=== PATIENT | female | born 1945 | race Caucasian/White ===

== ENCOUNTER → 2016-05-21 | Outpatient (CLI) | payer BC ==
[~2016-05-21] MED LIST: CALC500C3 PEG; CLCC1250 PO; ENBREL; FSM70 PO; IBUP-1050 PO
--- NOTE | 2016-05-21 13:25 | MAMMOGRAPHY REPORT ---
BILATERAL DIGITAL SCREENING MAMMOGRAM WITH CAD: 05/21/2016 CLINICAL HISTORY: Routine screening. Patient has no complaints. TECHNIQUE: Current study was also evaluated with a Computer Aided Detection (CAD) system. Bilatera l CC and MLO views were obtained. COMPARISON: Comparison is made to exams dated: 05/21/2015 mammogram, 05/18/2014 mammogram, 04/10/2013 m ammogram, 04/08/2012 mammogram, 04/03/2011 mammogram, and 04/02/2010 mammogram - [facility]. BREAST COMPOSITION: There are scattered areas of fibroglandular density in both breasts. FINDINGS: No suspicious masses, calcifications, or areas of architectural distortion are noted in e ither breast. There has been no significant interval change compared to prior exams. IMPRESSION: ACR BI-RADS CATEGORY 1: NEGATIVE There is no mammographic evidence of malignancy. A 1 year screening mammogram is recommended. The p atient will receive written notification of the results. Approximately 10% of breast cancers are not detected with mammography. A negative mammographic repor t should not delay biopsy if a clinically suggestive mass is present. Lila Gloria M.D. /:05/21/2016 12:32:18 Custodial Aide: Rekha STYLES,R, M, [facility] letter sent: Normal 1/2 BI-RADS Code: ACR BI-RADS Category 1: Negative
== END | disposition home or self-care (01) ==
LOC: C.MAMM 10:39
PROVIDERS: ATTEND Internal Medicine
DX: Z12.31 Encounter for screening mammogram for malignant neoplasm of breast (principal)

== ENCOUNTER → 2016-06-10 | Outpatient (CLI) | payer BC ==
[2016-06-10 16:41] LABS: BASO % 0.3 %; BASO ABS # 0.03 K/uL (0-0.2); COMPLETE YES; EOS % 1.2 %; HEMATOCRIT 42.5 % (37-47); IG% 0.3 %; LYMPH % 28.4 %; LYMPH ABS # 2.84 K/uL (1.2-3.4); MEAN CELL VOLUME 88.2 fL (80-100); MEAN CORPUSCULAR HEMOGLOBIN 30.3 pg (25-34); MEAN CORPUSCULAR HGB CONC 34.4 g/dl (32-36); MEAN PLATELET VOLUME 9.2 fL (7.4-10.4); MONO % 5.2 %; NEUT % 64.6 %; PLATELET COUNT 361 K/uL (130-400); RED BLOOD COUNT 4.82 M/uL (4.2-5.4)
[2016-06-10 17:01] LABS: ALT/SGPT 35 U/L (12-78); BLOOD UREA NITROGEN 15 mg/dl (7-18); BUN/CREATININE RATIO 13.5 (10-20); CALCIUM 9.3 mg/dl (8.5-10.1); CARBON DIOXIDE 26 mmol/L (21-32); CHLORIDE 104 mmol/L (98-107); GLUCOSE 163 mg/dl (70-99); POTASSIUM 3.7 mmol/L (3.5-5.1); SODIUM 140 mmol/L (136-145)
[2016-06-10 17:04] LABS: ALB/GLOB RATIO 0.9 (0.9-2); ALKALINE PHOSPHATASE 41 U/L (45-117); AST/SGOT 31 U/L (15-37)
== END | disposition home or self-care (01) ==
LOC: C.LAB1850 15:12
PROVIDERS: ATTEND Internal Medicine
DX: L40.50 Arthropathic psoriasis, unspecified (principal); Z79.899 Other long term (current) drug therapy

== ENCOUNTER → 2016-12-11 | Outpatient (CLI) | payer BC ==
[2016-12-11 14:15] LABS: HEMATOCRIT 43.4 % (37-47); MEAN CELL VOLUME 89.9 fL (80-100); MEAN CORPUSCULAR HEMOGLOBIN 31.3 pg (25-34); MEAN CORPUSCULAR HGB CONC 34.8 g/dl (32-36); MEAN PLATELET VOLUME 9.6 fL (7.4-10.4); PLATELET COUNT 358 K/uL (130-400); RED BLOOD COUNT 4.83 M/uL (4.2-5.4); WHITE BLOOD COUNT 10.66 K/uL (4.8-10.8)
[2016-12-11 14:25] LABS: ALT/SGPT 35 U/L (12-78); AST/SGOT 26 U/L (15-37); BLOOD UREA NITROGEN 13 mg/dl (7-18); CALCIUM 9.4 mg/dl (8.5-10.1); CARBON DIOXIDE 27 mmol/L (21-32); CHLORIDE 105 mmol/L (98-107); CHOLESTEROL 198 mg/dl (0-200); CREATININE 0.99 mg/dl (0.60-1.20); GLUCOSE 88 mg/dl (70-99); POTASSIUM 4.3 mmol/L (3.5-5.1); SODIUM 138 mmol/L (136-145)
[2016-12-11 14:28] LABS: CHOLESTEROL/HDL RATIO 2.8; HDL CHOLESTEROL 70 mg/dl; LDL CHOLESTEROL CALCULATED 104 mg/dl; TRIGLYCERIDES 120 mg/dl (0-150); VERY LOW DENSITY LIPOPROT CALC 24 mg/dl
== END | disposition home or self-care (01) ==
LOC: C.LAB1850 12:39
PROVIDERS: ATTEND Internal Medicine
DX: L40.50 Arthropathic psoriasis, unspecified (principal); M85.80 Other specified disorders of bone density and structure, unspecified site; Z79.899 Other long term (current) drug therapy; Z13.220 Encounter for screening for lipoid disorders

== ENCOUNTER → 2017-05-24 | Outpatient (CLI) | payer BC ==
--- NOTE | 2017-05-25 15:16 | MAMMOGRAPHY REPORT ---
BILATERAL DIGITAL SCREENING MAMMOGRAM TOMOSYNTHESIS WITH CAD: 05/24/2017 CLINICAL HISTORY: Routine screening. Patient has no complaints. TECHNIQUE: Breast tomosynthesis in addition to standard 2D mammography was performed. Current study was also evaluated with a Computer Aided Detection (CAD) system. COMPARISON: Comparison is made to exams dated: 05/21/2015 mammogram, 05/18/2014 mammogram, 04/10/2013 ma mmogram, 04/08/2012 mammogram, 04/03/2011 mammogram, and 04/02/2010 mammogram - [facility]ter. BREAST COMPOSITION: There are scattered areas of fibroglandular density in both breasts. FINDINGS: The parenchymal pattern is unchanged. No developing mass, architectural distortion or clus ter of suspicious microcalcifications is seen in either breast. IMPRESSION: ACR BI-RADS CATEGORY 2: BENIGN There is no mammographic evidence of malignancy. A 1 year screening mammogram is recommended. The pa tient will receive written notification of the results. Approximately 10% of breast cancers are not detected with mammography. A negative mammographic report should not delay biopsy if a clinically suggestive mass is present. Bhavana Mars M.D. ay/:05/24/2017 15:42:15 Bible Reader: Angelica STYLES(Tin)(Rosa)(BD), [facility] letter sent: Normal 1/2 BI-RADS Code: ACR BI-RADS Category 2: Benign
== END | disposition home or self-care (01) ==
LOC: C.MAMM 10:20
PROVIDERS: ATTEND Internal Medicine
DX: Z12.31 Encounter for screening mammogram for malignant neoplasm of breast (principal)

== ENCOUNTER → 2017-06-14 | Outpatient (CLI) | payer BC ==
[2017-06-14 13:18] LABS: HEMATOCRIT 42.6 % (37-47); HEMOGLOBIN 14.6 g/dL (12.0-16.0); MEAN CELL VOLUME 90.1 fL (80-100); MEAN CORPUSCULAR HEMOGLOBIN 30.9 pg (25-34); MEAN CORPUSCULAR HGB CONC 34.3 g/dl (32-36); MEAN PLATELET VOLUME 8.7 fL (7.4-10.4); PLATELET COUNT 351 K/uL (130-400); RED CELL DISTRIBUTION WIDTH CV 13.4 % (11.5-14.5); RED CELL DISTRIBUTION WIDTH SD 44.8 fL (36.4-46.3); WHITE BLOOD COUNT 10.48 K/uL (4.8-10.8)
[2017-06-14 13:52] LABS: ALBUMIN 3.7 gm/dl (3.4-5.0); ALT/SGPT 44 U/L (12-78); AST/SGOT 36 U/L (15-37); BLOOD UREA NITROGEN 13 mg/dl (7-18); CALCIUM 9.1 mg/dl (8.5-10.1); CARBON DIOXIDE 27 mmol/L (21-32); CREATININE 0.95 mg/dl (0.60-1.20); GLUCOSE 85 mg/dl (70-99); POTASSIUM 3.8 mmol/L (3.5-5.1); SODIUM 139 mmol/L (136-145)
[2017-06-14 13:57] LABS: ALKALINE PHOSPHATASE 45 U/L (45-117); TOTAL PROTEIN 7.5 gm/dl (6.4-8.2)
== END | disposition home or self-care (01) ==
LOC: C.LAB1850 12:40
PROVIDERS: ATTEND Internal Medicine
DX: M85.80 Other specified disorders of bone density and structure, unspecified site (principal); L40.50 Arthropathic psoriasis, unspecified

== ENCOUNTER 2024-04-21 10:50 | Inpatient (IN) ==
[2024-04-21 11:51] LABS: Basophils # (auto) 0.04 K/uL (0.00-0.20); Basophils % (auto) 0.3 %; Eosinophils # (auto) 0.01 K/uL (0.00-0.50); Eosinophils % (auto) 0.1 %; Hematocrit (blood only) 48.1 % (37.0-47.0); Hemoglobin 16.2 g/dl (12.0-16.0); Immature Granulocytes # (auto) 0.07 K/uL (0.01-0.20); Immature Granulocytes % (auto) 0.4 %; Lymphocytes # (auto) 1.71 K/uL (1.20-3.40); Lymphocytes % (auto) 10.8 %; Mean Corpuscular Hgb Conc 33.7 g/dL (32.0-36.0); Mean Corpuscular Volume 89.1 fL (80.0-100.0); Mean Platelet Volume 8.6 fL (9.4-12.4); Monocytes # (auto) 1.17 K/uL (0.11-0.59); Monocytes % (auto) 7.4 %; Neutrophils # (auto) 12.85 K/uL (1.40-6.50); Platelet Count 452 K/uL (130-400); RDW Coefficient of Variation 12.7 % (11.5-14.5); RDW Standard Deviation 41.7 fL (36.4-46.3); White Blood Count 15.85 K/ul (4.8-10.8)
[2024-04-21 11:56] LABS: Appearance Urine Clear (Clear); Bacteria Urine Automated None Seen (None Seen); Bilirubin Urine 1+ (Negative); Blood Urine 1+ (Negative); Cast Urine Automated >20 /lpf (0-2); Color Urine Dark Yellow; Glucose Urine UA Negative (Negative); Ketones Urine Trace (Negative); Leukocyte Esterase Urine Negative (Negative); Mucus Urine Present (None Prsent); Nitrite Urine Negative (Negative); Protein Urine 1+ (Negative); Specific Gravity Urine 1.026 (1.000-1.030); Urobilinogen Urine Negative (Negative); WBC Urine Automated 0-5 /hpf (0-5)
[2024-04-21 12:08] LABS: Alanine Aminotransferase 14 U/L (7-52); Albumin Globulin Ratio 1.3 (0.9-2); Albumin Level 4.5 gm/dl (3.4-5.0); Alkaline Phosphatase 46 U/L (34-104); Anion Gap 13 (3-11); Aspartate Aminotransferase 23 U/L (13-39); BUN Creatinine Ratio 21.3 (10-20); Blood Urea Nitrogen 20 mg/dl (6-23); Calcium 9.8 mg/dl (8.6-10.3); Carbon Dioxide 26 mmol/L (21-32); Chloride 98 mmol/L (98-107); Creatinine Clr Calc Pharmacy 31.7 ml/min; Globulin 3.5 gm/dl (2.5-4.0); Glucose 123 mg/dl (70-99(Fasting)); Lipase 8 U/L (11-82); Potassium 3.9 mmol/L (3.5-5.1); Sodium 137 mmol/L (136-145)
[2024-04-21] MEDS: OPTIRAY 320 100ml IV ONE (12:30)
[2024-04-21 12:36] LABS: Adenovirus PCR Not Detected (NotDetected); Bordetella parapertussis PCR Not Detected (NotDetected); Bordetella pertussis PCR Not Detected (NotDetected); Chlamydia pneumoniae PCR Not Detected (NotDetected); Coronavirus 229E PCR Not Detected (NotDetected); Coronavirus CoV-2 (COVID19)PCR Not Detected (NotDetected); Coronavirus HKU1 PCR Not Detected (NotDetected); Coronavirus NL63 PCR Not Detected (NotDetected); Coronavirus OC43PCR Not Detected (NotDetected); Human Metapneumovirus PCR Not Detected (NotDetected); Influenza A PCR Not Detected (NotDetected); Influenza B PCR Not Detected (NotDetected); Mycoplasma pneumoniae PCR Not Detected (NotDetected); Parainfluenza Virus 1 PCR Not Detected (NotDetected); Parainfluenza Virus 2 PCR Not Detected (NotDetected); Parainfluenza Virus 3 PCR Not Detected (NotDetected); Parainfluenza Virus 4 PCR Not Detected (NotDetected); Respiratory Syncytial VirusPCR Not Detected (NotDetected); Rhinovirus/Enterovirus PCR Not Detected (NotDetected)
--- NOTE | 2024-04-21 12:53 | CT Scan Report ---
ABDOMEN AND PELVIS CT WITH IV CONTRAST CT DOSE: 394.91 mGy.cm HISTORY: lower abdominal pain, vomiting, diarrhea TECHNIQUE: Multiaxial CT images of the abdomen and pelvis were performed following the IV administrat ion of 90 cc of Optiray, A dose lowering technique was utilized adhering to the principles of ALARA. COMPARISON STUDY: 08/15/2013 FINDINGS: ABDOMEN: Liver, gallbladder, spleen, pancreas, and adrenal glands are unremarkable. Kidneys show no h ydronephrosis. There are scattered atherosclerotic calcifications. No abdominal aortic aneurysm. Pelvis: Uterus is either very diminutive or absent. No adnexal mass seen. Urinary bladder is decompre ssed. There is mild sigmoid diverticulosis. No acute diverticulitis. There is right hemicolectomy wit h anastomosis. There are multiple dilated small bowel loops at the proximal jejunum with transition z one at the right lower quadrant distal jejunum anteriorly best seen on coronal series 300 images 34 t hrough 54. Findings are consistent with small bowel obstruction, possibly due to adhesion. The small bowel beyond that point is decompressed. The colon is decompressed. No significant retained stool. Th ere is trace low pelvic free fluid. No free air or abscess. No enlarged adenopathy. Osseous structures: There are mild degenerative changes at the lumbar spine and hips. IMPRESSION: Small bowel obstruction with focal transition point at the anterior right lower quadrant distal jejunum, possibly due to adhesion. ACT 112: Negative or not required by law. The above report was generated using voice recognition software. It may contain grammatical, syntax o r spelling errors. Electronically signed by: Maco Davila M.D. 04/21/2024 12:51 PM
--- NOTE | 2024-04-21 13:37 | History & Physical Report ---
Date of Service April 21, 2024 Assessment & Plan (1) Small bowel obstruction: (2) Psoriatic arthritis: (3) Turners syndrome: Plan Anahi is a 79-year-old female with PMH of HTN, radiculitis, Browne syndrome, GERD, and psoriasis. She presented on 04/21 at the behest of her PCP for nausea, vomiting, diarrhea, and abdominal pain x 3 days. Her symptoms started on Tuesday 04/18 when she developed right lower quadrant abdominal pain during a bowel movement. Later that day, she began throwing up. She rates the pain 10/10 at worst, and 7/10 today in the emergency department. #Small bowel obstruction A/P CT revealed small bowel obstruction with focal transition point at the anterior RLQ H/o righthemicolectomy 28 years ago for tumor removal General surgery consult appreciated Patient is doing much better today; vomited this morning, but is still pass ing gas, and abdominal pain has improved Will defer NG tube at this time Strict n.p.o. for now IVF maintenance with NSS at 90 mL/hr x 24h (please add on additional fluids as needed) IV acetaminophen as needed for pain/fever IV antiemetics as needed for nausea/vomiting CRP ordered, pending for trend #Psoriatic arthritis Patient reports she normally gets her etanercept injections on Wednesday, but did not take it on Friday 04/21 Will defer for now Disposition: Admit to [facility] Full code N.p.o. VTE PPx: SCDs History of Present Illness Chief Complaint: Flulike symptoms Primary Care Provider: Jonathan Mahoney MD Anahi is a 79-year-old female with PMH of HTN, radiculitis, Browne syndrome, GERD, and psoriasis. She presented on 04/21 at the behest of her PCP for nausea, vomiting, diarrhea, and abdominal pain x 3 days. Her symptoms started on Tuesday 04/18 when she developed right lower quadrant abdominal pain during a bowel movement. Later in the day she began throwing up. She rates the pain 10/10 at worst, and 7/10 today in the emergency department. The only medication she is taken for her symptoms have been Tums, but this did not help as she vomited them up. She has not attempted to take any Tylenol or ibuprofen at home. Her pain is located in the right lower quadrant, with some radiation along the flank into the back. She reports the pain somewhat improved with sleep. She has barely been able to tolerate solids or liquids over the past 3 days. She drank some propel and diet Coke this morning, but then immediately threw it up. Her vomit was dark color this morning, but she was unsure if it was due to the Coca-Cola. No bright red blood in her vomit. She is still passing gas. Her last BM was 2 days ago. She only takes vitamins on a daily basis, and etanercept on Fridays for her psoriatic arthritis. She has no prior history of small bowel obstructions, but does have a history of right hemicolectomy to remove a tumor 28 years ago. Her appendix was removed at that time. Patient denies smoking, tobacco use, alcohol use, or recreational drug use. She has a dog named Shania (Marquita barnes). Patient is hypertensive 159/112 and tachycardic at time of admission; vitals otherwise stable. ED course: ROS: Patient endorses RLQ abdominal pain, N/V, lightheadedness (due to not eating), DIXON, and chronic dry cough. Patient denies fever, chills, night-sweats, chest pain, SOB, pleuritic CP, hematemesis, burning with urination, blood in the urine/stool, or melena. Allergies Allergy/AdvReac Type Severity Reaction Status Date / Time latex Allergy Intermediate SWELLS Verified 01/21/24 10:01 Penicillins Allergy Mild Verified 01/21/24 10:01 Home Medications Medication Instructions Recorded Confirmed Type etanercept 50 mg/mL (1 mL) 50 mg subcut WK 12/13/18 04/21/24 History subcutaneous syringe (Enbrel) calcium 500 mg (as 1 tab PO DIRECTED 07/17/19 04/21/24 History carbonate)-vitamin D3 5 mcg (200 unit) tablet cholecalciferol (vitamin D3) 25 1,000 units PO DAILY 07/17/19 04/21/24 History mcg (1,000 unit) capsule Eye Drops Relief 1 drp ophthalmic (eye) DIRECTED 04/21/24 04/21/24 History Past Med/Surg History Problem List (Updated 04/21/24 @ 14:51 by Rome Bruce PA-C) Small bowel obstruction Finger fracture, right Proximal phalanx fracture of finger (Acute ~12/01/23) mildly displaced fracture of the proximal phalanx of the right fifth digit Wears hearing aid in both ears Oticon Dynamo SP8 with FS silicone molds disp 01/2020 Headache Post-nasal drip Hyperglycemia Low vitamin B12 level Mixed conductive and sensorineural hearing loss of right ear with restricted hearing of left ear : [facility], AD: [facility] Cough Elevated white blood cell count Psoriasis Hx of mastoidectomy 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, 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 Dupuytren contracture GERD (gastroesophageal reflux disease) Osteopenia (Chronic) Turners syndrome (Chronic) Psoriatic arthritis Hypertension Surgical History S/P sinus surgery S/P colectomy Status post mastoidectomy S/P hernia repair History of dental surgery S/P cataract surgery Family History Mother Hypertension Osteoporosis Father Pancreatic cancer Other Breast cancer Colonic polyp Diabetes Ovarian cancer Social History Smoking Status: Never smoker Second Hand Exposure: No; Hx Alcohol Use: No Hx Substance Use: No Preferred Language: Citizen Of [place] Communication Ability: Effective Visual Impairment: No Limitations Hearing Ability: Use of Hearing Aid marital status: / Current Living Situation: Alone current occupational status: retired 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 [employer] Feels Safe at Home: Yes Childhood Exposure to Second-Hand Smoke: Yes Dental Care, Regularly: Yes Physical Activity Frequency: Daily Seatbelt Use: always Sunscreen Use: Yes Review of Systems Review of Systems: See HPI above Physical Exam Physical Exam: General: no acute distress; pleasant affect; friend at bedside; non-toxic appearing; frail appearing; SpO2 96% on RA HEENT: normocephalic, atraumatic; no scleral icterus; PERRLA; vision and hearing grossly intact Neck: supple; no lymphadenopathy; trachea midline Skin: warm, dry without signs of tenting; no cyanosis; no rashes, bruising, lesions, or erythema noted CV: chest wall NTP; RRR; S1/S2 normal; no murmurs/rubs/gallops; pulses intact and symmetric at radial, DP, and PT Lungs: no acute respiratory distress; symmetrical chest wall expansion; clear breath sounds across all lung concepcion w/o adventitious sounds; no wheezing ABD: Soft; RLQ is TTP; surgical scars noted; BS present; no rebound/guarding MSK: no tics or fasciculations; no edema noted in the LEs b/l, nonerythematous Neuro: A&Ox3; normal mood and affect; fluent speech; no focal deficits; s ensation intact and symmetric in lower extremities bilaterally Results & Data Results & Data Vital Signs (Past 12 Hours) Vital Signs Temp Pulse Resp BP Pulse Ox O2 Del Method 04/21/24 10:55 36.8 C 115 H 18 159/112 H 96 Room Air Laboratory Results Abnormal lab results 04/21/24 04/21/24 Range/Units 11:27 11:29 WBC 15.85 H (4.8-10.8) K/ul Hgb 16.2 H (12.0-16.0) g/dl Hct 48.1 H (37.0-47.0) % Plt Count 452 H (130-400) K/uL MPV 8.6 L (9.4-12.4) fL Neut # (Auto) 12.85 H (1.40-6.50) K/uL Mcdonald # (Auto) 1.17 H (0.11-0.59) K/uL Anion Gap 13 H (3-11) BUN/Creatinine Ratio 21.3 H (10-20) Glucose 123 H (70-99(Fasting)) mg/dl Lipase 8 L (11-82) U/L Urine Protein 1+ H (Negative) Urine Ketones Trace H (Negative) Urine Blood 1+ H (Negative) Urine Bilirubin 1+ H (Negative) Urine RBC (Auto) 6-10 H (0-2) /hpf U Hyaline Cast (Auto) >20 H (0-2) /lpf U Epithel Cells (Auto) 3-5 H (0-2) /hpf Urine Mucus Present A (None Prsent) Diagnostic Findings Abdomen/Pelvis CT 04/21/24 11:[address] WITH IV CONTRAST CT DOSE: 394.91 mGy.cm HISTORY: lower abdominal pain, vomiting, diarrhea TECHNIQUE: Multiaxial CT images of the abdomen and pelvis were performed following the IV administration of 90 cc of Optiray, A dose lowering technique was utilized adhering to the principles of ALARA. COMPARISON STUDY: 08/15/2013 FINDINGS: ABDOMEN: Liver, gallbladder, spleen, pancreas, and adrenal glands are unremarkable. Kidneys show no hydronephrosis. There are scattered atherosclerotic calcifications. No abdominal aortic aneurysm. Pelvis: Uterus is either very diminutive or absent. No adnexal mass seen. Urinary bladder is decompressed. There is mild sigmoid diverticulosis. No acute diverticulitis. There is right hemicolectomy with anastomosis. There are multiple dilated small bowel loops at the proximal jejunum with transition zone at the right lower quadrant distal jejunum anteriorly best seen on coronal series 300 images 34 through 54. Findings are consistent with small bowel obstruction, possibly due to adhesion. The small bowel beyond that point is decompressed. The colon is decompressed. No significant retained stool. There is trace low pelvic free fluid. No free air or abscess. No enlarged adenopathy. Osseous structures: There are mild degenerative changes at the lumbar spine and hips. IMPRESSION: Small bowel obstruction with focal transition point at the anterior right lower quadrant distal jejunum, possibly due to adhesion. ACT 112: Negative or not required by law. The above report was generated using voice recognition software. It may contain grammatical, syntax or spelling errors. Electronically signed by: Maco Davila M.D. 04/21/2024 12:51 PM Code Status & VTE Plan Code Status Full code Supervising Physician Co-Signing Physician Notes Patient seen and examined, chart reviewed, case discussed with Rome Bruce PA-C and I agree with the assessment and plan as above except as otherwise noted Labs and images reviewed 79-year-old female with past history of GERD, Turners, psoriatic arthritis, hypertension with several days of abdominal discomfort, nausea, vomiting for aseveral days and worse in the last 24 hours. +RLQ pain. Abdomen is soft and without rebound or rigidity. Prior hx of R hemicolectomy 28 years ago for concern of malignancy. CTA/P shows small bowel obstruction with transition point. General surgery consulted NPO. Patient is having swallowing flatus today. He is not nauseous and feels better on reassessment and is actually hungry. Do not recommend diet advancement quite yet, but will defer NGT. If worsening or return of nausea/vomiting NGT to LIS. IVFM continued. Contaminated UA without evidence of infection. BioFire is negative. Agree with assessment management above PG Care Time/CCT Total # of Minutes Spent Total Time Spent with Patient: Total time spent is greater than 50% in coordination of care (as documented) at patient's floor/unit and/or counseling patient: C[place] [address] INT INP/OBS CARE 2/55MIN Patient Type Established History Comprehensive Exam Comprehensive Medical Decision Making Moderate Complexity Diagnoses Small bowel obstruction K56.609 Psoriatic arthritis L40.50 Turners syndrome Q96.9
[2024-04-21] MEDS: SODIUM CHLORIDE 0.9% 1,000 ML IV SCH (15:11)
--- NOTE | 2024-04-21 15:40 | Surgery Consultation ---
Date of Consultation April 21, 2024 Assessment & Plan (1) Small bowel obstruction: This is a 79yF with a PMH of Browne Syndrome, hearing loss, GERD, HTN, Psoriatric arthritis who presents to the [facility] ED on 04/21/24 with complaints of abdominal pain, nausea/vomiting that all started on Wednesday. She has been de aling with intermittent symptoms since then. This AM had emesis again after drinking some diet coke and propel along with right sided abdominal discomfort prompting her to come in. She underwent a CT a/p that showed a small bowel obstruction with focal transition point at the anterior right lower quadrant distal jejunum, possibly due to adhesions. 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 She also subsequently had an incisional hernia repair as well. Patient denies ever having an SBO before. She says her last BM was a couple days ago and believes she is passing small amounts of gas today. She describes feeling a bit better than previously and is asking if she can eat. Today's vital signs are stable, initially tachycardic to 115 now 82. BP stable. Labs show WBC 15, Hbg 16, Cr 0.9. On exam patient is comfortable appearing and in no acute distress. Her abdomen is soft, mildly distended with discomfort to palpation in the R mid and R lower abdominal regions. Reviewed the plan of care with patient as she will be admitted for ongoing care. Keep patient NPO with IVF for bowel rest. Should she develop worsening nausea/vomiting/abdominal pain/distention she is aware that we may need to place an NGT for decompression. As she is feeling a bit better i believe we can hold off on this for now. We will follow along and hopefully she will improve with conservative measures, no plans for acute surgical intervention at this time. History of Present Illness History of Present Illness This is a 79yF with a PMH of Browne Syndrome, hearing loss, GERD, HTN, Psoriatric arthritis who presents to the [facility] ED on 04/21/24 with complaints of abdominal pain, nausea/vomiting. Patient reports starting to not feel well late wednesday evening. On she had some diarrhea in the AM and then vomiting later in the day. no emesis and then this AM had emesis again after drinking some diet coke and propel. She states she has some R sided abdominal pain associated with all of this. Because of her symptoms she presented to the ER for further evaluation. She underwent a CT a/p that showed a small bowel obstruction with focal transition point at the anterior right lower quadrant distal jejunum, possibly due to adhesions. Patient reports not having much of an appetite since all this started but did eat some bites of oatmeal and peaches yesterday. 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 She also subsequently had an incisional hernia repair as well. Patient denies ever having an SBO before. She says her last BM was a couple days ago and believes she is passing small amounts of gas today. She denies any CP/SOB, fevers, chills or lightheadedness. Describes a possible headache with some dizziness she attrib utes to not having much to eat or drink. She describes feeling a bit better than previously and is asking if she can eat. Allergies Allergy/AdvReac Type Severity Reaction Status Date / Time latex Allergy Intermediate SWELLS Verified 01/21/24 10:01 Penicillins Allergy Mild Verified 01/21/24 10:01 Home Medications Medication Instructions Recorded Confirmed Type etanercept 50 mg/mL (1 mL) 50 mg subcut WK 12/13/18 04/21/24 History subcutaneous syringe (Enbrel) calcium 500 mg (as 1 tab PO DIRECTED 07/17/19 04/21/24 History carbonate)-vitamin D3 5 mcg (200 unit) tablet cholecalciferol (vitamin D3) 25 1,000 units PO DAILY 07/17/19 04/21/24 History mcg (1,000 unit) capsule Eye Drops Relief 1 drp ophthalmic (eye) DIRECTED 04/21/24 04/21/24 History Patient History Surgical History S/P sinus surgery S/P colectomy Status post mastoidectomy S/P hernia repair History of dental surgery S/P cataract surgery Family History Mother Hypertension Osteoporosis Father Pancreatic cancer Other Breast cancer Colonic polyp Diabetes Ovarian cancer Social History (Reviewed 04/21/24 @ 16:32 by OMERO Hilton Smoking Status: Never smoker Second Hand Exposure: No; Hx Alcohol Use: No Hx Substance Use: No Preferred Language: Fijian Communication Ability: Effective Visual Impairment: No Limitations Hearing Ability: Use of Hearing Aid Fish Machine Feeder Required: No Beliefs That Will Affect Care: None marital status: / Current Living Situation: Alone current occupational status: retired 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 [employer] Other Information That Helps Us Care for You: No Feels Safe at Home: Yes Safety Concerns: Feels Safe At This Time Childhood Exposure to Second-Hand Smoke: Yes Dental Care, Regularly: Yes Physical Activity Frequency: Daily Seatbelt Use: always Sunscreen Use: Yes Assistive Devices: Hearing Aid - Bilateral Review of Systems Constitutional: no fever and no chills Respiratory: no dyspnea Cardiovascular: no chest pain Gastrointestinal: + abdominal pain, + belching, + nausea, + vomiting and + constipation Physical Exam Physical Exam: awake/alert, sitting at the side of the bed. no distress Respiratory: normal respiratory effort Gastrointestinal (Abdomen): Inspection/Auscultation: + abdomen distended (mild) and + abdominal surgical scar (midline) Percussion/Palpation: + abdomen tender (ttp in the R mid and R lower abdomen) and abdomen soft Results & Data Vital Signs (Past 12 Hours) Vital Signs Temp Pulse Pulse Resp BP BP Pulse Ox 04/21/24 15:17 82 04/21/24 15:00 87 12 148/106 H 97 04/21/24 10:55 98.2 F 115 H 18 159/112 H 96 O2 Del Method 04/21/24 15:17 04/21/24 15:00 Room Air 04/21/24 10:55 Room Air Diagnostic Findings ABDOMEN AND PELVIS CT WITH IV CONTRAST CT DOSE: 394.91 mGy.cm HISTORY: lower abdominal pain, vomiting, diarrhea TECHNIQUE: Multiaxial CT images of the abdomen and pelvis were performed following the IV administration of 90 cc of Optiray, A dose lowering technique was utilized adhering to the principles of ALARA. COMPARISON STUDY: 08/15/2013 FINDINGS: ABDOMEN: Liver, gallbladder, spleen, pancreas, and adrenal glands are unremarkable. Kidneys show no hydronephrosis. There are scattered atherosclerotic calcifications. No abdominal aortic aneurysm. Pelvis: Uterus is either very diminutive or absent. No adnexal mass seen. Urinary bladder is decompressed. There is mild sigmoid diverticulosis. No acute diverticulitis. There is right hemicolectomy with anastomosis. There are multiple dilated small bowel loops at the proximal jejunum with transition zone at the right lower quadrant distal jejunum anteriorly best seen on coronal series 300 images 34 through 54. Findings are consistent with small bowel obstruction, possibly due to adhesion. The small bowel beyond that point is decompressed. The colon is decompressed. No significant retained stool. There is trace low pelvic free fluid. No free air or abscess. No enlarged adenopathy. Osseous structures: There are mild degenerative changes at the lumbar spine and hips. IMPRESSION: Small bowel obstruction with focal transition point at the anterior right lower quadrant distal jejunum, possibly due to adhesion. ACT 112: Negative or not required by law. The above report was generated using voice recognition software. It may contain grammatical, syntax or spelling errors. Electronically signed by: Maco Davila M.D. 04/21/2024 12:51 PM PG Care Time/CCT Total # of Minutes Spent Total Time Spent with Patient: Total time spent is greater than 50% in coordination of care (as documented) at patient's floor/unit and/or counseling patient: Coding Level of Care Code 64002 INT INP/OBS CARE MIN Diagnoses Small bowel obstruction K56.609
--- NOTE | 2024-04-21 16:29 | Emergency Department Note ---
ED Provider Note History of Present Illness Chief Complaint: Flu Like Symptoms Stated Complaint: ABD CRAMPS, VOMITING, RT ABD PAIN Time Seen by Provider: 04/21/24 12:05 Source: patient Mode of arrival: ambulatory Limitations: no limitations Patient is a 79-year-old female who presents to the emergency department with complaints of abdominal cramping, right lower quadrant pain and vomiting. Patient states that symptoms have been ongoing for several days. Patient notes that she had a previous right hemicolectomy 28 years ago. Patient is concerned she may have the flu, but denies any sick contacts that she is aware of. Home Medications Medication Instructions Recorded Confirmed Type etanercept 50 mg/mL (1 mL) 50 mg subcut WK 12/13/18 04/21/24 History subcutaneous syringe (Enbrel) calcium 500 mg (as 1 tab PO DIRECTED 07/17/19 04/21/24 History carbonate)-vitamin D3 5 mcg (200 unit) tablet cholecalciferol (vitamin D3) 25 1,000 units PO DAILY 07/17/19 04/21/24 History mcg (1,000 unit) capsule Eye Drops Relief 1 drp ophthalmic (eye) DIRECTED 04/21/24 04/21/24 History Allergies Allergy/AdvReac Type Severity Reaction Status Date / Time latex Allergy Intermediate SWELLS Verified 01/21/24 10:01 Penicillins Allergy Mild Verified 01/21/24 10:01 Past Med/Surg History Problem List (Updated 04/21/24 @ 16:38 by FAVIAN Hilton) Small bowel obstruction (Acute) Finger fracture, right Proximal phalanx fracture of finger (Acute ~12/01/23) mildly displaced fracture of the proximal phalanx of the right fifth digit Wears hearing aid in both ears Oticon Dynamo SP8 with FS silicone molds disp 01/2020 Headache Post-nasal drip Hyperglycemia Low vitamin B12 level Mixed conductive and sensorineural hearing loss of right ear with restricted hearing of left ear : [facility]v [facility], AD: [facility] Cough Elevated white blood cell count Psoriasis Hx of mastoidectomy 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, 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 Dupuytren contracture GERD (gastroesophageal reflux disease) Osteopenia (Chronic) Turners syndrome (Chronic) Psoriatic arthritis Hypertension Surgical History S/P sinus surgery S/P colectomy Status post mastoidectomy S/P hernia repair History of dental surgery S/P cataract surgery Family History Mother Hypertension Osteoporosis Father Pancreatic cancer Other Breast cancer Colonic polyp Diabetes Ovarian cancer Social History Smoking Status: Never smoker Second Hand Exposure: No; Hx Alcohol Use: No Hx Substance Use: No Preferred Language: Tunisian Communication Ability: Effective Visual Impairment: No Limitations Hearing Ability: Use of Hearing Aid marital status: / Current Living Situation: Alone current occupational status: retired 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 [employer] Feels Safe at Home: Yes Childhood Exposure to Second-Hand Smoke: Yes Dental Care, Regularly: Yes Physical Activity Frequency: Daily Seatbelt Use: always Sunscreen Use: Yes Physical Exam Vital Signs Vital Signs - 24 hr 04/21/24 10:55 Temperature 36.8 C Temperature Source Temporal Artery Scan Pulse Rate 115 H Respiratory Rate 18 Respiratory Effort / Characteristics Non-Labored Spontaneous Respiratory Depth Normal Respiratory Pattern Regular Blood Pressure 159/112 H Blood Pressure Mean 127 Pulse Oximetry 96 Oxygen Delivery Method Room Air Sepsis Recent Fever Within 48 Hours No Sepsis New/Unexplained Change in Mental Status N/A Sepsis Action Taken by Nursing No Action Required VITAL SIGNS - Vital signs and nursing notes were reviewed. GENERAL -79-year-old female appearing her stated age who is in no acute distress. Communicates well with provider and answers questions appropriately. HEAD - NC/AT. EYES - PERRL with EOMI bilaterally. Conjunctiva pink and moist with no injection noted. LUNGS - Chest wall symmetric without accessory muscle use, intercostals retractions, or central cyanosis. Breath sounds clear throughout all concepcion. No wheezes, rales, or rhonchi appreciated. CARDIAC - RRR with S1/S2. No murmur, rubs, or gallops appreciated. ABDOMEN - Abdominal contour without pulsations or visible masses. Negative [place]'s or [place] Browne's Signs. BS is hypoactive in all four quadrants. Increased tenderness to palpation appreciated in the right lower quadrant. No guarding. No rebound Tenderness. No palpable masses, hepatosplenomegaly, or ascites noted. NEUROLOGIC - Sensory intact to light touch throughout. PSYCH - A&Ox3 and cooperates fully with examiner. Pt is very pleasant and interacts well with examiner. Course Administered Medications Sodium Chloride (Nss) 1,000 mls @ 90 mls/hr IV .[id number] PENDING SALE TO [facility] Stop: 04/22/24 14:59 Last Admin: 04/21/24 15:11 Dose: 90 mls/hr Documented By: Discontinued Medications Ioversol (Optiray 320 100ml) 93 ml IV ONCE ONE Stop: 04/21/24 12:30 Last Admin: 04/21/24 12:30 Dose: 93 ml Documented By: KSF Medical Decision Making Differential Diagnosis Differential diagnoses includes gastritis, gastroenteritis, IBS, small bowel obstruction, pancreatitis, peritonitis, constipation, abdominal abcess, influenza, COVID, norovirus, among others. Medical Records Attestation: I reviewed the patient's medical records. Home Medications was personally reviewed by me Laboratory Data Attestation: I reviewed the patient's lab results. 04/21/24 11:27 04/21/24 11:27 Lab Results 04/21/24 04/21/24 04/21/24 Range/Units 11:22 11:27 11:29 WBC 15.85 H (4.8-10.8) K/ul RBC 5.40 (4.20-5.40) M/uL Hgb 16.2 H (12.0-16.0) g/dl Hct 48.1 H (37.0-47.0) % MCV 89.1 (80.0-100.0) fL MCH 30.0 (25.0-34.0) pg MCHC 33.7 (32.0-36.0) g/dL RDW Std Deviation 41.7 (36.4-46.3) fL RDW Coeff of Jayme 12.7 (11.5-14.5) % Plt Count 452 H (130-400) K/uL MPV 8.6 L (9.4-12.4) fL Immature Gran % (Auto) 0.4 % Neut % (Auto) 81.0 % Lymph % (Auto) 10.8 % Castro % (Auto) 7.4 % Eos % (Auto) 0.1 % Baso % (Auto) 0.3 % Neut # (Auto) 12.85 H (1.40-6.50) K/uL Lymph # (Auto) 1.71 (1.20-3.40) K/uL Castro # (Auto) 1.17 H (0.11-0.59) K/uL Eos # (Auto) 0.01 (0.00-0.50) K/uL Baso # (Auto) 0.04 (0.00-0.20) K/uL Immature Gran # (Auto) 0.07 (0.01-0.20) K/uL Sodium 137 (136-145) mmol/L Potassium 3.9 (3.5-5.1) mmol/L Chloride 98 (98-107) mmol/L Carbon Dioxide 26 (21-32) mmol/L Anion Gap 13 H (3-11) BUN 20 (6-23) mg/dl Creatinine 0.94 (0.6-1.2) mg/dl Est Cr Clr Drug Dosing 31.7 ml/min eGFR 62.11 BUN/Creatinine Ratio 21.3 H (10-20) Glucose 123 H (70-99(Fasting)) mg/dl Calcium 9.8 (8.6-10.3) mg/dl Total Bilirubin 1.0 (0.2-1.0) mg/dl AST 23 (13-39) U/L ALT 14 (7-52) U/L Alkaline Phosphatase 46 (34-104) U/L Total Protein 8.0 (6.0-8.3) gm/dl Albumin 4.5 (3.4-5.0) gm/dl Globulin 3.5 (2.5-4.0) gm/dl Albumin/Globulin Ratio 1.3 (0.9-2) Lipase 8 L (11-82) U/L Urine Color Dark Yellow Urine Appearance Clear (Clear) Urine pH 5.0 (4.5-7.5) Ur Specific [place] 1.026 (1.000-1.030) Urine Protein 1+ H (Negative) Urine Glucose (UA) Negative (Negative) Urine Ketones Trace H (Negative) Urine Blood 1+ H (Negative) Urine Nitrite Negative (Negative) Urine Bilirubin 1+ H (Negative) Urine Urobilinogen Negative (Negative) Ur Leukocyte Esterase Negative (Negative) Urine WBC (Auto) 0-5 (0-5) /hpf Urine RBC (Auto) 6-10 H (0-2) /hpf U Hyaline Cast (Auto) >20 H (0-2) /lpf U Epithel Cells (Auto) 3-5 H (0-2) /hpf Urine Bacteria (Auto) None Seen (None Seen) Urine Mucus Present A (None Prsent) Adenovirus (PCR) Not Detected (NotDetected) B. pertussis DNA (PCR) Not Detected (NotDetected) B.parapertussis DNA PCR Not Detected (NotDetected) C. pneumoniae DNA (PCR) Not Detected (NotDetected) Coronavirus OC43 (PCR) Not Detected (NotDetected) Coronavirus HKU1 (PCR) Not Detected (NotDetected) Coronavirus 229E (PCR) Not Detected (NotDetected) SARS-CoV-2 (PCR) Not Detected (NotDetected) Coronavirus NL63 (PCR) Not Detected (NotDetected) Human Metapneumovir PCR Not Detected (NotDetected) Influenza Type A (PCR) Not Detected (NotDetected) Influenza Type B (PCR) Not Detected (NotDetected) M. pneumoniae (PCR) Not Detected (NotDetected) Parainfluenza 1 (PCR) Not Detected (NotDetected) Parainfluenza 2 (PCR) Not Detected (NotDetected) Parainfluenza 3 (PCR) Not Detected (NotDetected) Parainfluenza 4 (PCR) Not Detected (NotDetected) RSV (PCR) Not Detected (NotDetected) Entero/Rhino (PCR) Not Detected (NotDetected) Imaging Data Radiologist's Impression: Abdomen/Pelvis CT 04/21/24 11:[address] WITH IV CONTRAST CT DOSE: 394.91 mGy.cm HISTORY: lower abdominal pain, vomiting, diarrhea TECHNIQUE: Multiaxial CT images of the abdomen and pelvis were performed following the IV administration of 90 cc of Optiray, A dose lowering technique was utilized adhering to the principles of ALARA. COMPARISON STUDY: 08/15/2013 FINDINGS: ABDOMEN: Liver, gallbladder, spleen, pancreas, and adrenal glands are unremarkable. Kidneys show no hydronephrosis. There are scattered atherosclerotic calcifications. No abdominal aortic aneurysm. Pelvis: Uterus is either very diminutive or absent. No adnexal mass seen. Urinary bladder is decompressed. There is mild sigmoid diverticulosis. No acute diverticulitis. There is right hemicolectomy with anastomosis. There are multiple dilated small bowel loops at the proximal jejunum with transition zone at the right lower quadrant distal jejunum anteriorly best seen on coronal series 300 images 34 through 54. Findings are consistent with small bowel obstruction, possibly due to adhesion. The small bowel beyond that point is decompressed. The colon is decompressed. No significant retained stool. There is trace low pelvic free fluid. No free air or abscess. No enlarged adenopathy. Osseous structures: There are mild degenerative changes at the lumbar spine and hips. IMPRESSION: Small bowel obstruction with focal transition point at the anterior right lower quadrant distal jejunum, possibly due to adhesion. ACT 112: Negative or not required by law. The above report was generated using voice recognition software. It may contain grammatical, syntax or spelling errors. Electronically signed by: Maco Davila M.D. 04/21/2024 12:51 PM [facility] Narrative Patient is a 79-year-old female who presents to the emergency department with complaints of abdominal cramping, right lower quadrant pain and vomiting. Patient states that symptoms have been ongoing for several days. Patient notes that she had a previous right hemicolectomy 28 years ago. Patient is concerned she may have the flu, but denies any sick contacts that she is aware of. Patient was evaluated by myself and findings were noted in the physical exam above. Patient was ordered IV placement, lab work, upper respiratory viral panel, urinalysis, and a CT of the abdomen and pelvis. Patient's urinalysis resulted and did have positive protein, blood, bilirubin, and urine mucus. Patient's lab work resulted with an elevated white blood cell count of 15.85. Patient had no indication of anemia or electrolyte imbalance. Patient had a mild anion gap of 13. Patient's upper respiratory viral panel resulted negative for any findings. Patient CT of the abdomen pelvis showed a small bowel obstruction with focal transition point at the anterior right lower quadrant distal jejunum possibly due to adhesion at the anastomosis site from her previous right hemicolectomy. I discussed these findings with the patient who verbalized understanding. I discussed with the patient she would likely need to stay in the hospital for some bowel rest and evaluation from general surgery. Patient verbalized understanding and was agreeable to that plan. I reached out to general surgery and spoke to Zainab who advised that the patient could hold off on having an NG tube placed at this time since she was not actively vomiting and noted that her nausea has improved. She also stated that she would see the patient in the emergency department. I spoke to Dr. Iyer regarding this patient and give him a full report on the patient's chief complaint, current status, and results of her imaging and lab work. Dr. Iyer agreed to admit the patient under his service. I discussed with the patient that she would be admitted to the hospital and kept on bowel rest the patient was agreeable to this plan and verbalized understanding. [facility] for further evaluation and management of this patient. Impression Small bowel obstruction Discharge Plan Visit Data Chief Complaint: Flu Like Symptoms Stated Complaint: ABD CRAMPS, VOMITING, RT ABD PAIN ED Provider: Anahy Franks ED Midlevel Provider: Shiloh Javier Discharge Problem: Small bowel obstruction Patient Disposition: Admitted As Inpatient Discharge Instructions Interventions: ED Discharge Assessment Last Done: 04/21/24 16:10
[2024-04-21] MEDS ORDERED: ONDANSETRON INJ 2 MG/ML 2 ML VIAL IV PRN (16:43)
[2024-04-21] MEDS ORDERED: ACETAMINOPHEN 1,000 MG/100 ML VIAL IV PRN (16:43)
[2024-04-21 17:01] LABS: C Reactive Protein < 0.50 mg/dl (0-0.5)
--- OUTSIDE RECORDS SUMMARY | 2024-04-21 18:01 | External Medical Summary | Continuity of Care Document ---
Author Name Unknown Organization [facility] [address] [facility] Address [address] [facility] [address] [id number] Care Team Providers Care Attendant Child Activity Name Role Phone Pro Ricardo Ayad Primary Care Physician [phone] [id number] Date(s): 04/03/24 - 04/03/24 [facility] [address] [facility] [address] [id number] Encounter Diagnosis Psoriasis vulgaris(Discharge Diagnosis) - 04/03/24 Long-term use of high-risk medication(Discharge Diagnosis) - 04/03/24 Actinic keratoses(Discharge Diagnosis) - 04/03/24 Seborrheic keratoses(Discharge Diagnosis) - 04/03/24 Discharge Disposition: Home or Self Care Attending Physician: MD Perez Sara B Allergies, Adverse Reactions, Alerts Substance Criticality Severity Reaction Reaction Severity Status penicillin unknown Active Latex Rash Active Assessment and Plan Extracted from: Title:Dermatology Office Visit Note Author:Mirela clark MD, Sara B Date:04/03/24 1.Psoriasis vulgaris Chronic, at goal, continue Enbrel. Her joints are doing well as well 2.Long-term use of high-risk medication Patient aware to hold medication and call me if she gets ill. She is also due for her QuantiFERON. She is up-to-date with all her vaccinations. 3.Actinic keratoses X 1.Lesions treated with liquid nitrogen. Patient aware of possibility of infection, hypo or hyperpigmentation or scarring and did elect to proceed. They should inform me of any problems or recurrences post treatment. Care sheet given. 4.Seborrheic keratoses Chronic, within normal limits 5. Onychomycosis. She is going to discuss this with Dr. Claudia Mcnally. Immunizations Given and Recorded Vaccine Date Status Refusal Reason SARS-CoV-2 (COVID-19) mRNA BNT-162b2 vax 3/22/21 Recorded SARS-CoV-2 (COVID-19) mRNA BNT-162b2 vax 05/20/20 Recorded influenza virus vaccine, inactivated 12/20/14 Lloyd rded influenza virus vaccine, inactivated 01/20/14 Lloyd rded influenza virus vaccine, inactivated 01/02/14 Give n pneumococcal 23-valent vaccine 01/20/14 Recorded Medications Advil Start: 09/11/10 10:28:00 AM EDT, 200 mg =, PO, q4h, PRN: as needed for pain Start Date: 09/11/10 Status: Ordered betamethasone dipropionate 0.05% topical ointment Start: 06/28/19 7:31:00 PM EDT, 1 appl, topical, bid, Disp# 45 g, Refills: 1, To itchy red rash BID for up to 2 weeks, Pharmacy: [id number] Start Date: 06/28/19 Status: Ordered Enbrel SureClick Autoinjector 50 mg/mL SQ solution Start: 04/03/24 1:14:00 PM EST, 50 mg =, subQ, q7days, Disp# 4 mL, Refills: 3, Pharmacy: [facility] Start Date: 04/03/24 Status: Ordered erythromycin 0.5% ophthalmic ointment APPLY A THIN RIBBON 3 TIMES A DAY INTO LEFT EYE FOR 7 DAYS DIRECTED Start Date: 04/01/23 Status: Ordered Iron Chews Start: 03/03/21 10:35:00 AM EST Start Date: 03/03/21 Status: Ordered OsCal 500 Start: 09/11/10 10:28:00 AM EDT, 1,250 mg =, PO, bid Start Date: 09/11/10 Status: Ordered triamcinolone 0.1% topical cream Start: 10/13/23 10:14:00 AM EDT, 1 appl, topical, bid, Disp# 30 g, Refills: 1, To red rash in ear BID PRN, Pharmacy: [id number] Start Date: 10/13/23 Status: Ordered Tums 500 Start: 06/22/12 3:56:00 PM EDT, 1,250 mg =, PO, tid, PRN: Dyspepsia Start Date: 06/22/12 Status: Ordered Vitamin D3 Start: 06/24/11 1:01:00 PM EDT, 1 tab, PO, Daily Start Date: 06/24/11 Status: Ordered Mental Status 04/03/24 Barriers to Learning one year Hearing de ficit Mandatory Health Literacy Documentation Yes Health Literacy Communication Barriers N ever Primary Language Bruneian Problem List Condition Confirmation Course Effective Dates Status Health St atus Informant Arthritis Confirmed Active Multiple nevi Confirmed Active Changing skin lesion Confirmed Active Left foot pain Confirmed Active Long-term use of high-risk medication Confirmed Active Hearing deficit 1 Confirmed Active History of actinic keratoses Confirmed Active Intertrigo Confirmed Active Actinic keratoses Confirmed Active Toenail deformity Confirmed Active Tinea unguium Confirmed Active Peripheral vascular disease Confirmed Active Psoriasis vulgaris Confirmed Active Seborrheic keratoses Confirmed Active 1Bilateral hearing aids Diagnosis Diagnosis Type Effective Dates Health Status Clinical Service Informant Long-term use of high-risk medication Discharge Diagnosis 04/03/24 Seborrheic keratoses Discharge Diagnosis 04/03/24 Psoriasis vulgaris Discharge Diagnosis 04/03/24 Actinic keratoses Discharge Diagnosis 04/03/24 Procedures Procedure Date Related Diagnosis Body Site Status Shave biopsy and cauterization of skin 01/06/23 Completed Colonoscopy 1 07/18/20 Completed Shave biopsy 2 06/13/20 Completed Shave biopsy and cauterisation of skin 11/29/19 Completed Extn - Extraction of tooth 2017 Completed Colonoscopy 2016 Completed Punch biopsy 01/02/14 Completed Herniorrhaphy 2007 Completed 1Diverticulosis in the sigmoid colon The examined portion of the ileum was normal. No specimens collected Discharge patient to home Continue present medications Repeat Colonoscopy in 5 years for surveillance 2left frontal scalp Social History Social History Type Response Smoking Status Never smoked cigaret sera Sex Female Sex Representation Female (finding) Dermatology Outpatient Note * MD Ana, Danuta B: PERFORM Event Display: Dermatology Outpt Note Authored Date: [id number] Chief Complaint Skin check. hx AK, psoriasis. No concerns. History of Present Illness The patient is a pleasant 78-year-old female with a long-term history of psoriasis and psoriatic arthritis. She currently takes Enbrel 50 mg subq weekly. Does see Dr. Cabrera as well. Has a history of actinic keratoses. Last QuantiFERON was negative from January 2023. [1] She has recently gotten her flu shot and her COVID shot. She is feeling well. Denies infectious symptoms. Joints are pretty stable. Skin has been clear. Physical Exam Gen: Well appearing patient, no acute distress. Alert and oriented x3. Good mood. Skin examination completed of face, eyelids, scalp, hair, lips, ears, neck, chest, back, abdomen,upper and lower extremities bilaterally including hands, feet, fingers and toes, fingernails and toenails, pt declined buttocks and groin. Pt declined a wood buffer.Patient has some onychomycosisin her toenails. She prefers to discuss this with Dr. Claudia Mcnally. She has 1 actinic keratosis that the light on the left scalp she has had several biopsies Danuta before which have always shown AK. Scattered seborrheic keratoses. Assessment/Plan 1.Psoriasis vulgaris Chronic, at goal, continue Enbrel. Her joints are doing well as well 2.Long-term use of high-risk medication Patient aware to hold medication and call me if she gets ill. She is also due for her QuantiFERON. She is up-to-date with all her vaccinations. 3.Actinic keratoses X 1.Lesions treated with liquid nitrogen. Patient aware of possibility of infection, hypoor hyperpigmentation or scarring and did elect to proceed. They should inform me of any problems or recurrences post treatment. Care sheet given. 4.Seborrheic keratoses Chronic, within normal limits 5. Onychomycosis. She is going to discuss this with Dr. Claudia Mcnally. Problem List/Past Medical History Ongoing Actinic keratoses Arthritis Changing skin lesion Hearing deficit History of actinic keratoses Intertrigo Left foot pain Long-term use of high-risk medication Multiple nevi Peripheral vascular disease Psoriasis vulgaris Seborrheic keratoses Tinea unguium Toenail deformity Resolved Herpes zoster Neoplasm of uncertain behavior Psoriasis Procedure/Surgical History Shave biopsy and cauterization of skin| Service Date: 3Colonoscopy| Service Date: 07/18/2020have biopsy| Service Date: 06/13/2020have biopsy and cauterisation of skin| Service Date: 11/29/2019Extn - Extraction of tooth| Service Date: 2017Colonoscopy| Service Date: 2015Punch biopsy| Service Date: 01/02/2014Herniorrhaphy| Service Date: 2006 Medications betamethasone topical(betamethasone dipropionate 0.05% topical ointment), 1 appl, topical, bid, 1 refills calcium carbonate(OsCal 500), 1250 mg, PO, bid calcium carbonate(Tums 500), 1250 mg, PO, tid, PRN carbonyl iron(Iron Chews) cholecalciferol(Vitamin D3), 1 tab, PO, Daily erythromycin ophthalmic(erythromycin 0.5% ophthalmic ointment) etanercept(Enbrel SureClick Autoinjector 50 mg/mL SQ solution), 50 mg, subQ, q7days, 3 refills ibuprofen(Advil), 200 mg, PO, q4h, PRN triamcinolone topical(triamcinolone 0.1% topical cream), 1 appl, topical, bid, 1 refills Allergies LatexRash penicillinunknown Social History Smoking Status Never smoked cigarettes [1]Dermatology Office Visit Note; MD Ana, Dnauta Stover 10/13/2023 10:21 EDT Electronic Signature on File Electronically Reviewed/Signed by: Danuta Perez MD Author Signature Dt/Tm:04/03/2024 01:21 PM Department of Dermatology [facility] Patient Care team information Care Team Personnel Name: MD Mahoney Jeffrey W Position: Referring DIRECT Member Role: Primary Care Provider Address: [facility] [address] [place] [address] Care Team Related Persons Name: JOSELIN SCHILLING Name: LAWRENCE SMITH Name: RICARDO MORALES Name: VICKY FITZPATRICK"
--- NOTE | 2024-04-22 05:04 | Surgery Progress Note ---
Date of Service April 22, 2024 Assessment & Plan (1) Small bowel obstruction: Plan: Patient has been admitted on the hospitalist service. From surgery perspective we recommend the following: CT scan of the abdomen pelvis on 04/21/2024 shows concern for small bowel obstruction with a transition point in the right lower quadrant, possibly due to adhesions As patient reports return of bowel function consideration may be given to advancing her diet beginning with sips of clear liquids Would continue intravenous fluids for hydration until oral intake is adequate and reliable Mobilize as able Check a.m. labs unavailable as above. Sitting up on the bedside. She is having no pain or nausea. She had a large bowel movement last night. She is very hungry. We will initiate clear liquids and we can slowly advance. No indication for surgical intervention at this time. Will repeat a KUB tomorrow. Admission and Anticipated Discharge Date Admission Date: April 21, 2024 Subjective Patient is currently resting comfortably in bed. She notes she previously had pain on the right side of her abdomen which is markedly improved since admission. She denies any nausea or vomiting. She denies any fevers, shakes, or chills. She notes that she had a small bowel movement last evening and she notes that her appetite has improved and she feels somewhat hungry. Physical Exam Gastrointestinal (Abdomen): Abdomen is soft with minimal distention. There is no pain with palpation and there is no rebound tenderness or guarding. Results & Data Vital Signs (Past 12 Hours) Vital Signs Temp Pulse Resp BP Pulse Ox O2 Del Method 04/21/24 19:22 36.7 C 67 12 155/85 H 97 Room Air PG Care Time/CCT Total # of Minutes Spent Total Time Spent with Patient: Total time spent is greater than 50% in coordination of care (as documented) at patient's floor/unit and/or counseling patient: Coding Level of Care Code 17477 SUB INP/OBS CARE 04/15MIN Diagnoses Small bowel obstruction K56.609
[2024-04-22 06:46] LABS: Basophils # (auto) 0.06 K/uL (0.00-0.20); Basophils % (auto) 0.4 %; Eosinophils # (auto) 0.07 K/uL (0.00-0.50); Eosinophils % (auto) 0.5 %; Hematocrit (blood only) 39.6 % (37.0-47.0); Hemoglobin 13.1 g/dl (12.0-16.0); Immature Granulocytes # (auto) 0.08 K/uL (0.01-0.20); Immature Granulocytes % (auto) 0.6 %; Lymphocytes # (auto) 2.24 K/uL (1.20-3.40); Lymphocytes % (auto) 15.9 %; Mean Corpuscular Hemoglobin 29.8 pg (25.0-34.0); Mean Corpuscular Hgb Conc 33.1 g/dL (32.0-36.0); Mean Corpuscular Volume 90.2 fL (80.0-100.0); Mean Platelet Volume 8.7 fL (9.4-12.4); Monocytes # (auto) 1.27 K/uL (0.11-0.59); Neutrophils # (auto) 10.33 K/uL (1.40-6.50); Neutrophils % (auto) 73.6 %; Platelet Count 350 K/uL (130-400); RDW Coefficient of Variation 12.7 % (11.5-14.5); RDW Standard Deviation 42.1 fL (36.4-46.3); Red Blood Count 4.39 M/uL (4.20-5.40); White Blood Count 14.05 K/ul (4.8-10.8)
[2024-04-22 06:54] LABS: BUN Creatinine Ratio 27.4 (10-20); C Reactive Protein 0.67 mg/dl (0-0.5); Calcium 8.7 mg/dl (8.6-10.3); Creatinine Clr Calc Pharmacy 40.8 ml/min; Potassium 3.9 mmol/L (3.5-5.1)
--- NOTE | 2024-04-22 08:05 | Hospitalist Progress Note ---
Date of Service April 22, 2024 Assessment & Plan (1) Small bowel obstruction: (2) Psoriatic arthritis: (3) Turners syndrome: Rodo Christian is a 79-year-old female with PMH of HTN, radiculitis, Browne syndrome, GERD, and psoriasis. She presented on 04/21 at the behest of her PCP for nausea, vomiting, diarrhea, and abdominal pain x 3 days. Her symptoms started on Tuesday 04/18 when she developed right lower quadrant abdominal pain during a bowel movement. Later that day, she began throwing up. She rates the pain 10/10 at worst, and 7/10 today in the emergency department. #Small bowel obstruction -CT-A/P: small bowel obstruction with focal transition point at the anterior RLQ - H/o righthemicolectomy 28 years ago for tumor removal - General Surgery following. - IV acetaminophen as needed for pain/fever until reliably able to take PO - IV antiemetics as needed for nausea/vomiting until reliably able to take PO - CRP is slightly uptrending, WBC slightly downtrending. Cr stable - Clinically pt feels well and is eager to have diet advanced. Cautious progression 2/2 transition point, rising CRP but BM and appetite are reassuring. Clears today, KUB in AM. #Psoriatic arthritis - Patient reports she normally gets her etanercept injections on Wednesday, but did not take it on Friday 04/21 - defer for now Disposition: [facility] Full code N.p.o. VTE PPx: SCDs Admission and Anticipated Discharge Date Admission Date: April 21, 2024 Subjective Pleasant, alert at bedside. Eager to have diet advanced. Reports BM last night none today. No abdominal pain. +flatus this morning Has been drinking water without pain. No nausea/vomiting no fevers, chills, sweats Physical Exam Physical Exam: General: A&Ox3. NAD. Cooperative. HEENT: Atraumatic, normocephalic. Vision and hearing grossly intact Pulm: Symmetrical chest rise. No increased work of breathing. No respiratory distress. Cardiac: RRR, -mrg. Radial pulses intact and symmetrical. Abdominal: Nontender, nondistended, soft. BS present. PG Care Time/CCT Total # of Minutes Spent Total Time Spent with Patient: Total time spent is greater than 50% in coordination of care (as documented) at patient's floor/unit and/or counseling patient: Coding Level of Care Code 60497 SUB INP/OBS CARE MIN Diagnoses Small bowel obstruction K56.609 Psoriatic arthritis L40.50 Turners syndrome Q96.9
[2024-04-22 20:08] LABS: Adenovirus F 40/41 PCR Not Detected (NotDetected); Astrovirus PCR Not Detected (NotDetected); Campylobacter PCR Not Detected (NotDetected); Cryptosporidium PCR Not Detected (NotDetected); Cyclospora cayetanensis PCR Not Detected (NotDetected); Entamoeba histolytica PCR Not Detected (NotDetected); Enteroaggregative E.coli(EAEC) Not Detected (NotDetected); Enterotoxigenic E.coli (ETEC) Not Detected (NotDetected); Giardia lamblia PCR Not Detected (NotDetected); Norovirus GI/GII PCR Not Detected (NotDetected); Plesiomonas shigelloides PCR Not Detected (NotDetected); Rotavirus A PCR Not Detected (NotDetected); Salmonella PCR Not Detected (NotDetected); Sapovirus PCR Not Detected (NotDetected); Shiga-like Toxin E.coli (STEC) Not Detected (NotDetected); Shigella/Enteroinvasive E.coli Not Detected (NotDetected); Vibrio cholerae PCR Not Detected (NotDetected); Vibrio species PCR Not Detected (NotDetected)
[2024-04-22 20:12] LABS: Enteropathogenic E.coli (EPEC) DETECTED (NotDetected); Yersinia enterocolitica PCR DETECTED (NotDetected)
--- NOTE | 2024-04-23 05:42 | Surgery Progress Note ---
Date of Service April 23, 2024 Assessment & Plan (1) Small bowel obstruction: Plan: Patient has been admitted on the hospitalist service. From surgery perspective we recommend the following: CT scan of the abdomen pelvis on 04/21/2024 shows concern for small bowel obstruction with a transition point in the right lower quadrant, possibly due to adhesions Diet has been advanced to clear liquids with patient has tolerated; can consider advancing diet further slowly Mobilize as able Check a.m. labs unavailable KUB has been ordered for this morning which is pending Of note, stool studies have returned positive for Y. enterocolitica and E. coli--I discussed this with the hospitalist service and they will treat accordingly as above. feeling ok. no n/v. no abd pain. KUB still with some dilated bowel. will advance to full liquids. enteritis not SBO appears to be the issue. will continue to follow until resolution. Admission and Anticipated Discharge Date Admission Date: April 21, 2024 Subjective Patient is resting comfortably in bed. She denies abdominal pain at this time. She denies any nausea or vomiting. She continues to pass flatus and has tolerated clear liquids without exacerbating her abdominal pain. Physical Exam Gastrointestinal (Abdomen): Abdomen is soft and nondistended. There is no pain with palpation Results & Data Vital Signs (Past 12 Hours) Vital Signs Temp Pulse Resp BP Pulse Ox O2 Del Method 04/22/24 19:22 36.7 C 59 L 14 143/86 H 99 Room Air PG Care Time/CCT Total # of Minutes Spent Total Time Spent with Patient: Total time spent is greater than 50% in coordination of care (as documented) at patient's floor/unit and/or counseling patient: Coding Level of Care Code 57021 SUB INP/OBS CARE 04/15MIN Diagnoses Small bowel obstruction K56.609
[2024-04-23 07:27] LABS: Basophils # (auto) 0.08 K/uL (0.00-0.20); Basophils % (auto) 0.7 %; Eosinophils # (auto) 0.28 K/uL (0.00-0.50); Eosinophils % (auto) 2.4 %; Hematocrit (blood only) 42.1 % (37.0-47.0); Hemoglobin 14.3 g/dl (12.0-16.0); Immature Granulocytes # (auto) 0.04 K/uL (0.01-0.20); Immature Granulocytes % (auto) 0.3 %; Lymphocytes # (auto) 2.63 K/uL (1.20-3.40); Lymphocytes % (auto) 22.2 %; Mean Corpuscular Hemoglobin 30.8 pg (25.0-34.0); Mean Corpuscular Volume 90.5 fL (80.0-100.0); Mean Platelet Volume 9.5 fL (9.4-12.4); Monocytes # (auto) 0.96 K/uL (0.11-0.59); Monocytes % (auto) 8.1 %; Neutrophils # (auto) 7.87 K/uL (1.40-6.50); Neutrophils % (auto) 66.3 %; Platelet Count 323 K/uL (130-400); RDW Coefficient of Variation 12.6 % (11.5-14.5); RDW Standard Deviation 42.1 fL (36.4-46.3); Red Blood Count 4.65 M/uL (4.20-5.40); White Blood Count 11.86 K/ul (4.8-10.8)
[2024-04-23 07:39] LABS: BUN Creatinine Ratio 24.3 (10-20); Calcium 9.1 mg/dl (8.6-10.3); Creatinine Clr Calc Pharmacy 40.2 ml/min; Potassium 3.5 mmol/L (3.5-5.1)
--- NOTE | 2024-04-23 07:40 | Hospitalist Progress Note ---
Date of Service April 23, 2024 Assessment & Plan (1) Small bowel obstruction: (2) Psoriatic arthritis: (3) Turners syndrome: Rodo Christian is a 79-year-old female with PMH of HTN, radiculitis, Browne syndrome, GERD, and psoriasis. She presented on 04/21 at the behest of her PCP for nausea, vomiting, diarrhea, and abdominal pain x 3 days. Her symptoms started on Tuesday 04/18 when she developed right lower quadrant abdominal pain during a bowel movement. Later that day, she began throwing up. She rates the pain 10/10 at worst, and 7/10 today in the emergency department. #Small bowel obstruction -CT-A/P: small bowel obstruction with focal transition point at the anterior RLQ - H/o righthemicolectomy 28 years ago for tumor removal - General Surgery following. - IV acetaminophen as needed for pain/fever until reliably able to take PO - IV antiemetics as needed for nausea/vomiting until reliably able to take PO - Tolerating clears well --> advance to full Repeat KUB stable, dilated mildly, small bowel loops consistent with early versus partial small bowel obstruction. Enterocolitis treated as noted Repeat KUB in morning Enterocolitis PCR testing positive for both Yersinia enterocolitis and EPEC, this is NOT O157:H7/EHEC and Shiga toxin is negative; may treat Yersinia with minimal risk of HUS due to concurrent E coli infection - Rocephin 2g IV daily ordered. Pt is PCN allergic, reports she did not have an allergic rxn to PCN as a kid but cried often when it was IM. Does not recall any rash or breathing allergy. Will monitor. Alternative abx includes Cipro tx however there has been some resistance to FQs and prefer rocephin first line unless clear allergy. #Psoriatic arthritis - Patient reports she normally gets her etanercept injections on Wednesday, but did not take it on Friday 04/21 - defer for now Disposition: [facility] Full code N.p.o. VTE PPx: SCDs Admission and Anticipated Discharge Date Admission Date: April 21, 2024 Subjective Seen the bedside this morning. Tolerating clears well no pain. Bowel movement last night. Patient is somewhat upset at time of visit, she notes that she had been brought vegetable and orange Jell-O which would have been her last choice and was frustrated by this. He is eager to have her diet advanced and if she has had no pain with her meals and did have a bowel movement last night. She also reports she is very upset as she accidentally dropped her cross while toileting last night which fell into the toilet. She was fortunately able to retrieve this but notes it was given to her by her late and upset her a great deal. Did discuss her stool cultures now positive for Yersinia and EPEC. Patient reports she has not had this before. She reports she has an allergy to penicillins, notes that they stop given this to as a child because she would cry a lot during IM injections but is not certain but does not think she had any rash or breathing allergies to penicillin. Physical Exam Physical Exam: General: A&Ox3. NAD. Cooperative. HEENT: Atraumatic, normocephalic. Pulm: CTAB A&P. -wheezes, -rales, -rhonchi. Symmetrical chest rise. No increase in work of breathing. No respiratory distress. Cardiac: RRR, -mrg. Radial pulses intact and symmetrical. Abdominal: Patient denies tenderness to palpation of the abdomen, abdomen is soft. 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
[2024-04-23] MEDS: cefTRIAXone SODIUM 2,000 MG/50 ML BAG IV SCH ×2 (08:58→09:15)
--- NOTE | 2024-04-23 09:28 | XRay Report ---
EXAM: Radiograph of the Abdomen 1 View INDICATION: Bowel obstruction. TECHNIQUE: Frontal supine view of the abdomen/pelvis. COMPARISON: CT 04/21/2024 FINDINGS: Limitations: None. Gastrointestinal tract: Small amounts of air in the rectum and stomach. Organs: Visualized organ shadows appear grossly normal. Bones/joints: Degenerative changes noted throughout the spine. No acute osseous abnormality seen. Soft tissues: Stable dilated and mildly edematous small bowel loops in the left abdomen and pelvis. IMPRESSION: Stable dilated and mildly edematous small bowel loops in the left abdomen and pelvis consistent with early or partial small bowel obstruction. ACT 112: Negative or not required by law. Electronically signed by Selena Paredes 04-23-2024 09:28 AM
[2024-04-24 06:24] LABS: Basophils # (auto) 0.06 K/uL (0.00-0.20); Basophils % (auto) 0.6 %; Eosinophils % (auto) 3.1 %; Hematocrit (blood only) 38.7 % (37.0-47.0); Hemoglobin 13.2 g/dl (12.0-16.0); Immature Granulocytes # (auto) 0.06 K/uL (0.01-0.20); Immature Granulocytes % (auto) 0.6 %; Lymphocytes % (auto) 22.5 %; Mean Corpuscular Hemoglobin 30.3 pg (25.0-34.0); Mean Corpuscular Hgb Conc 34.1 g/dL (32.0-36.0); Mean Platelet Volume 8.9 fL (9.4-12.4); Monocytes # (auto) 1.04 K/uL (0.11-0.59); Monocytes % (auto) 10.7 %; Neutrophils % (auto) 62.5 %; Platelet Count 355 K/uL (130-400); RDW Coefficient of Variation 12.6 % (11.5-14.5); RDW Standard Deviation 40.7 fL (36.4-46.3); Red Blood Count 4.35 M/uL (4.20-5.40); White Blood Count 9.76 K/ul (4.8-10.8)
[2024-04-24 06:46] LABS: BUN Creatinine Ratio 21.3 (10-20); Calcium 8.6 mg/dl (8.6-10.3); Creatinine Clr Calc Pharmacy 39.7 ml/min; Potassium 3.5 mmol/L (3.5-5.1)
[2024-04-24 07:27] VITALS: BP 128/80; RESP 17; TEMP 99; O2SAT 98
--- NOTE | 2024-04-24 09:36 | Discharge Summary ---
Discharge Summary Date of Service April 24, 2024 Principal Dx & Hospital Course #1 = Principal Diagnosis (1) Small bowel obstruction: (2) Psoriatic arthritis: (3) Turners syndrome: Rodo Christian is a 79-year-old female with PMH of HTN, radiculitis, Browne syndrome, GERD, and psoriasis. She presented on 04/21 at the behest of her PCP for nausea, vomiting, diarrhea, and abdominal pain x 3 days. Her symptoms started on Tuesday 04/18 when she developed right lower quadrant abdominal pain during a bowel movement. Later that day, she began throwing up. She rates the pain 10/10 at worst, and 7/10 today in the emergency department. Anahi is a 79-year-old female who presented with nausea/vomiting and she was found to have a suspected small bowel obstructing on CT. CTAP showed a small bowel obstruction with focal transition point at the right lower quadrant. She had a prior history of right colectomy 28 years ago for tumor removal. She was initially n.p.o. did not require an NGT placement and tolerated clears well. She was advanced through a low fiber diet and tolerated this well with regular bowel movements and flatus. Stool studies were positive for both Yersinia and EPEC. Repeat KUB was stable. Symptoms were felt to be predominantly due to her enterocolitis. This was treated with Rocephin and transition to cefpodoxime to complete a 5-day course of antibiotics on discharge. This was reviewed with ID prior to discharge who are in agreement. Also of note her E. coli infection was EPEC and without check a toxin, can treat the Yersinia without additional risk for HUS. Discharged to follow-up with PCP Complete 4 additional days of cefpodoxime 200 mg p.o. twice daily Continue low fiber diet. Handout provided at discharge Admission HPI Per Admitting Provider Anahi is a 79-year-old female with PMH of HTN, radiculitis, Browne syndrome, GERD, and psoriasis. She presented on 04/21 at the behest of her PCP for nausea, vomiting, diarrhea, and abdominal pain x 3 days. Her symptoms started on Tuesday 04/18 when she developed right lower quadrant abdominal pain during a bowel movement. Later in the day she began throwing up. She rates the pain 10/10 at worst, and 7/10 today in the emergency department. The only medication she is taken for her symptoms have been Tums, but this did not help as she vo mited them up. She has not attempted to take any Tylenol or ibuprofen at home. Her pain is located in the right lower quadrant, with some radiation along the flank into the back. She reports the pain somewhat improved with sleep. She has barely been able to tolerate solids or liquids over the past 3 days. She drank some propel and diet Coke this morning, but then immediately threw it up. Her vomit was dark color this morning, but she was unsure if it was due to the Coca-Cola. No bright red blood in her vomit. She is still passing gas. Her last BM was 2 days ago. She only takes vitamins on a daily basis, and etanercept on Fridays for her psoriatic arthritis. She has no prior history of small bowel obstructions, but does have a history of right hemicolectomy to remove a tumor 28 years ago. Her appendix was removed at that time. Patient denies smoking, tobacco use, alcohol use, or recreational drug use. She has a dog named Shania (Marquita barnes). Patient is hypertensive 159/112 and tachycardic at time of admission; vitals otherwise stable. ED course: ROS: Patient endorses RLQ abdominal pain, N/V, lightheadedness (due to not eating), DIXON, and chronic dry cough. Patient denies fever, chills, night-sweats, chest pain, SOB, pleuritic CP, hematemesis, burning with urination, blood in the urine/stool, or melena. Discharge Exam General: A&Ox3. NAD. Cooperative. HEENT: Atraumatic, normocephalic. Pulm: CTAB A&P. -wheezes, -rales, -rhonchi. Symmetrical chest rise. No increased work of breathing. No respiratory distress. Cardiac: RRR, -mrg. Radial pulses intact and symmetrical. Abdominal: Nontender, nondistended, soft. BS present. Discharge Plan Discharge Items Patient Disposition: Home - Self-Care Reason For Visit: SBO Discharge Diagnosis: SBO, Yersinia Enterocolitis Activity: Resume your previous activity Non-emergency contact: Primary Care Provider Call non-emergency contact if: you have any medication questions and your symptoms worsen Follow-up/Referrals: Jonathan Mahoney MD [Primary Care Provider] - Diet: Low Fiber Addtl Attending Provider Instructions: You are seen in the hospital for a small bowel obstruction. Your symptoms clinically improved during admission. Surgery was consulted, he did not require surgical intervention during admission. A stool study did show evidence of infection with E. coli and Yersenia enterocolitis. Your E. coli was a type called EPEC that was safe to treat. You case was reviewed with Infectious Disease during admission. You were tolerating a low fiber diet with no nausea/vomiting, and were having regular formed bowel movements and passing gas day of and prior to dc. You have been discharged on antibiotics. Please take cepodoxime 200mg by mouth twice daily for 4 days. Please take your first dose of this medicine the morning of 04/25/24. If you develop any new or worsening symptoms including fever, chills, sweats, chest pain, chest pressure, difficulty breathing, uncontrolled nausea/vomiting, rash, wheezing, passing out or nearly passing out, bleeding, black/bloody bowel movements, or other new or concerning symptoms please call your primary care physician, or call 911 for re-evaluation in the emergency department if you are very concerned. Pending Studies at Discharge: No Stand-Alone Forms: My [facility] 3225 films, Smoking Cessation Medications and DC Order Prescriptions: New cefpodoxime 200 mg tablet 200 mg PO Q12H Qty: 8 0RF Rx Instructions: must administer with a meal/food Continued Enbrel 50 mg/mL (1 mL) syringe 50 mg SQ WK Rx Instructions: filled 03/27 28 day supply calcium carbonate-vitamin D3 500 mg(1,250mg) -200 unit tablet 1 tab PO DIRECTED Rx Instructions: otc unable to verify cholecalciferol (vitamin D3) 25 mcg (1,000 unit) capsule 1,000 units PO DAILY Rx Instructions: otc unable to verify Eye Drops Relief 1 drp ophthalmic (eye) DIRECTED Discharge Orders: Discharge Order (Routine); Ordered 04/24/24 Ordered By: Xavier Evans/Other Patient Handouts: Low-Fiber Diet Admission Data Admit Date/Time: 04/21/24 14:48 Attending Provider: Xavier Iyer Admit Provider: Xavier Iyer Primary Care Provider: Jonathan Mahoney Other Providers: Ildefonso Moreno; Xavier Iyer Hospital Stay Data Consultations 04/21/24 13:58 Consult General Surgery Routine 04/21/24 14:34 ED Decision to Admit Stat 04/23/24 07:13 Consult Infectious Diseases Stat Diagnostic Imagining Performed 04/21/24 11:21 CT abd pelvis IV con only Stat Pending Results Patient Have Any Pending Studies at Discharge: No Discharge Instructions Given to Patient (Per Discharging Provider) You are seen in the hospital for a small bowel obstruction. Your symptoms clinically improved during admission. Surgery was consulted, he did not require surgical intervention during admission. A stool study did show evidence of infection with E. coli and Yersenia enterocolitis. Your E. coli was a type called EPEC that was safe to treat. You case was reviewed with Infectious Disease during admission. You were tolerating a low fiber diet with no nausea/vomiting, and were having regular formed bowel movements and passing gas day of and prior to dc. You have been discharged on antibiotics. Please take cepodoxime 200mg by mouth twice daily for 4 days. Please take your first dose of this medicine the morning of 04/25/24. If you develop any new or worsening symptoms including fever, chills, sweats, chest pain, chest pressure, difficulty breathing, uncontrolled nausea/vomiting, rash, wheezing, passing out or nearly passing out, bleeding, black/bloody bowel movements, or other new or concerning symptoms please call your primary care physician, or call 911 for re-evaluation in the emergency department if you are very concerned. Total Time Total Time Spent Total Time Spent (In Minutes): Time spend day of discharge 40 minutes including direct patient care, documentation, review of labs and images, and coordination of care. 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
[2024-04-24 11:28] VITALS: PULSE 87
== END 2024-04-24 12:23 | disposition home or self-care (01) | DRG 389 ==
LOC: ED 10:50 → 3N 14:48